=== PATIENT | female | born 1995 | race Caucasian/White ===

== ENCOUNTER 2017-10-06 07:12 | Inpatient (IN) | payer MEDICAID ==
[2017-10-06] MEDS ORDERED: Lactated Ringers 1,000 ML IV ONE (07:15)
[2017-10-06] MEDS ORDERED: XYLOCAINE 1% HCL 20 ML MDV ONE (07:23)
[2017-10-06] MEDS ORDERED: PITOCIN 30 UNITS/ LR 500 ML 500 ML IV ONE (07:24)
[2017-10-06] MEDS ORDERED: LANSINOH 40 GM TOP PRN (07:34)
[2017-10-06] MEDS ORDERED: TYLENOL EXTRA STRENGTH 500 MG PO PRN ×2 (07:34)
[2017-10-06] MEDS ORDERED: Anucort-HC SUPPOSITORY PR PRN (07:34)
[2017-10-06] MEDS ORDERED: Restoril 15 MG PO PRN (07:34)
[2017-10-06] MEDS ORDERED: Mylicon 80MG PO PRN (07:34)
[2017-10-06] MEDS ORDERED: CORTISONE 1% CREAM TP PRN (07:34)
[2017-10-06] MEDS ORDERED: Dulcolax 10 MG SUPP PR PRN (07:34)
[2017-10-06] MEDS ORDERED: Zofran 4 MG/2 ML VIAL IV PRN (07:34)
[2017-10-06] MEDS ORDERED: Ambien 10 MG PO PRN (07:34)
[2017-10-06] MEDS ORDERED: XYLOCAINE 1% HCL 20 ML MDV IJ PRN (07:34)
[2017-10-06] MEDS ORDERED: TUCKS TP PRN (07:34)
[2017-10-06] MEDS ORDERED: Dermoplast Spray TP PRN (07:34)
[2017-10-06] MEDS ORDERED: Lactated Ringers 1,000 ML IV SCH (08:00)
[2017-10-06] MEDS ORDERED: PITOCIN 30 UNITS/ LR 500 ML 500 ML IV SCH (08:00)
[2017-10-06 08:14] LABS: Granulocyte Absolute (ANC) 23.01 (1.4-6.9); Hematocrit 33.4 % (35-47); Hemoglobin 10.9 gm/dl (12.0-16.0); Mean Cell Volume 92.3 fl (78-100); Mean Corpuscular Hemoglobin 30.1 pg (26-32); Mean Corpuscular Hgb Concent. 32.6 g/dl (32-36); Mean Platelet Volume 9.3 fl (6-9.5); Platelet Count 254 K/mm3 (150-450); Red Blood Count 3.62 M/mm3 (4.1-5.4); Red Cell Distribution Width 13.2 % (11.5-14.0)
[2017-10-06 08:51] LABS: White Blood Count 26.8 K/mm3 (4.0-10.5)
[2017-10-06] MEDS: MOTRIN 400 MG PO PRN ×3 (09:07→23:35)
[2017-10-06 09:53] LABS: ABO TYPING O; Antibody Screen NEGATIVE (NEGATIVE); RH TYPING POSITIVE
[2017-10-06 11:50] LABS: BAND 5 % (0.0-2.0); Lymphocytes 15 % (24-44); Monocyte 3 % (0.0-12.0); Neutrophils 77 % (36.0-66.0); Total Cells Counted 100
[2017-10-06 11:51] LABS: Platelet Estimate NORMAL (NORMAL)
[2017-10-06] MEDS: NICODERM CQ 14 MG TOP SCH (16:12)
[2017-10-06] MEDS: NORCO 5/325 MG PO PRN (20:12)
[2017-10-06] MEDS: Colace 100 MG PO SCH (20:12)
[2017-10-07 06:10] LABS: Granulocyte Absolute (ANC) 20.09 (1.4-6.9); Hematocrit 31.1 % (35-47); Hemoglobin 10.1 gm/dl (12.0-16.0); Mean Corpuscular Hgb Concent. 32.5 g/dl (32-36); Mean Platelet Volume 9.5 fl (6-9.5); Platelet Count 274 K/mm3 (150-450); Red Blood Count 3.38 M/mm3 (4.1-5.4); Red Cell Distribution Width 13.4 % (11.5-14.0)
[2017-10-07 06:31] LABS: Mean Corpuscular Hemoglobin 29.8 pg (26-32); White Blood Count 26.7 K/mm3 (4.0-10.5)
--- NOTE | 2017-10-07 08:44 | PCM.NOTE ---
Date and Time: 10/07/17 0842 Subjective Assessment: patient has mild lochia today, no significant pelvic pain. has some mild cough that is chronic from smoking. no dysuria, hesitancy or frequency Objective Exam General Appearance: no apparent distress, alert Respiratory Exam: normal breath sounds, lungs clear, No respiratory distress Cardiovascular Exam: regular rate/rhythm, normal heart sounds Gastrointestinal/Abdomen Exam: soft, No tenderness, No mass Extremity Exam: normal inspection, normal range of motion OBJECTIVE DATA Vital Signs: Vital Signs - 24 hr Temp Pulse Resp BP 10/07/17 02:00 98.1 F 83 20 107/54 10/06/17 20:20 98.3 F 80 18 129/60 10/06/17 14:00 99.4 F 92 H 18 109/54 10/06/17 09:55 98.5 F 87 18 125/71 10/06/17 08:55 86 18 123/60 Pain Assessment - Last Documented Pain Intensity [Lower Anterior 5 /Posterior] Pain Intensity 6 Pain Scale Used 0-10 Pain Scale Intake and Output: Intake & Output 10/04/17 10/05/17 10/06/17 10/07/17 11:59 11:59 11:59 11:59 Intake Total 3000 Balance 3000 Weight 99.798 kg Lab Results: Lab Results-Last 24 Hours 10/06/17 10/06/17 10/06/17 Range/Units 07:52 07:52 07:52 WBC 26.8 H* (4.0-10.5) K/mm3 RBC 3.62 L (4.1-5.4) M/mm3 Hgb 10.9 L (12.0-16.0) gm/dl Hct 33.4 L (35-47) % MCV 92.3 (78-100) fl MCH 30.1 (26-32) pg MCHC 32.6 (32-36) g/dl RDW 13.2 (11.5-14.0) % Plt Count 254 (150-450) K/mm3 MPV 9.3 (6-9.5) fl Absolute Granulocytes 23.01 H (1.4-6.9) Segmented Neutrophils 77 H (36.0-66.0) % Band Neutrophils 5 H (0.0-2.0) % Lymphocytes (Manual) 15 L (24-44) % Monocytes (Manual) 3 (0.0-12.0) % Platelet Estimate NORMAL (NORMAL) RBC Morphology NORMAL Hep Bs Antigen Non Reactive (Non Reactive) ABO Group O Rh Factor POSITIVE Antibody Screen NEGATIVE (NEGATIVE) 10/07/17 Range/Units 05:30 WBC 26.7 H* (4.0-10.5) K/mm3 RBC 3.38 L (4.1-5.4) M/mm3 Hgb 10.1 L (12.0-16.0) gm/dl Hct 31.1 L (35-47) % MCV 92.0 (78-100) fl MCH 29.8 (26-32) pg MCHC 32.5 (32-36) g/dl RDW 13.4 (11.5-14.0) % Plt Count 274 (150-450) K/mm3 MPV 9.5 (6-9.5) fl Absolute Granulocytes 20.09 H (1.4-6.9) Segmented Neutrophils (36.0-66.0) % Band Neutrophils (0.0-2.0) % Lymphocytes (Manual) (24-44) % Monocytes (Manual) (0.0-12.0) % Platelet Estimate (NORMAL) RBC Morphology Hep Bs Antigen (Non Reactive) ABO Group Rh Factor Antibody Screen (NEGATIVE) Radiology Exams: Radiology Procedures Category Date Time Status CHEST 2 VIEWS (PA AND LAT) Urgent Exams 10/07/17 Ordered Multi-Disciplinary Progress Notes: Multi-Disciplinary Progress Notes 10/06/17 14:06 Respiratory Note by Maylin Ramirez FOR DELIVERY PER OB REQUEST NO COMPLICATIONS Initialized on 10/06/17 14:06 - END OF NOTE Assessment/Plan (1) Vaginal delivery Current Visit: Yes Status: Acute Code(s): O80 - ENCOUNTER FOR FULL-TERM UNCOMPLICATED DELIVERY (2) Leukocytosis Current Visit: Yes Status: Acute Assessment & Plan: get blood cultures, chest xray and u/a. will give a dose of rocephin emperically. requested a peripheral smear Code(s): D72.829 - ELEVATED WHITE BLOOD CELL COUNT, UNSPECIFIED
[2017-10-07 08:55] LABS: BAND 2 % (0.0-2.0); Eosinophil 1 % (0.00-3.0); Lymphocytes 22 % (24-44); Monocyte 1 % (0.0-12.0); Neutrophils 74 % (36.0-66.0); Platelet Estimate NORMAL (NORMAL); Polychromasia 1+; Total Cells Counted 100
--- NOTE | 2017-10-07 09:36 | XRAY ---
Indication: Cough. Elevated WBC. Comparison: None PA/lateral chest demonstrates normal heart, lungs, and bony thorax.
[2017-10-07] MEDS ORDERED: ROCEPHIN 1 Gm-D5w 50 ml Bag** 1 G/50 ML IVPB IV SCH (10:00)
[2017-10-07] MEDS: Colace 100 MG PO SCH (11:00)
[2017-10-07] MEDS: NORCO 5/325 MG PO PRN (11:04)
[2017-10-07] MEDS: FERREX 150 PO SCH ×2 (11:07→13:37)
[2017-10-07 12:40] LABS: Appearance CLEAR (CLEAR)
[2017-10-07 12:41] LABS: Bilirubin NEGATIVE (NEGATIVE); Blood NEGATIVE Ery/ul (0-5); Glucose NEGATIVE (NEGATIVE); Ketones NEGATIVE (NEGATIVE); Leukocyte Esterase 1+ (NEGATIVE); Nitrite NEGATIVE (NEGATIVE); Protein,Urine Dip NEGATIVE (Negative); Urobilinogen NORMAL mg/dL (0-1)
[2017-10-07 12:50] LABS: Bacteria FEW /HPF (NEGATIVE); Epithelial Cells MODERATE /HPF (FEW); Mucus SLIGHT /HPF (NEGATIVE)
[2017-10-07 12:56] LABS: Immune Status: Equivocal
[2017-10-07 14:00] LABS: RPR with Quantitation Non Reactive (Non Reactive)
[2017-10-07] MEDS: MOTRIN 400 MG PO PRN (16:21)
[2017-10-07] MEDS: NICODERM CQ 14 MG TOP SCH (16:22)
[2017-10-07 18:39] LABS: Amphetamine,Urine NEGATIVE (NEGATIVE); Barbiturate,Urine NEGATIVE (NEGATIVE); Benzodiazepine,Urine NEGATIVE (NEGATIVE); Cocaine,Urine NEGATIVE (NEGATIVE); Methadone,Urine NEGATIVE (NEGATIVE); Opiate,Urine NEGATIVE (NEGATIVE); PCP,Urine NEGATIVE (NEGATIVE); THC,Urine NEGATIVE (NEGATIVE)
[2017-10-07 20:53] VITALS: BP 125/74; PULSE 86
== END 2017-10-07 22:15 | disposition home or self-care (01) | DRG 775 ==
LOC: OB 07:12 → OBSVTOIN 07:12
PROVIDERS: ADMIT Family Medicine; ATTEND Family Medicine
PROC: 10E0XZZ Delivery of Products of Conception, External Approach (ICD-10-PCS; principal; 2017-10-06)
DX: O80 Encounter for full-term uncomplicated delivery (principal); Z3A.39 39 weeks gestation of pregnancy; Z37.0 Single live birth; D72.829 Elevated white blood cell count, unspecified
CPT/HCPCS: 36415; 71046; 80307; 81000; 85025; 86592; 86593; 86701; 86702; 86762; 86780; 86850; 86900; 86901; 87086; 87340; 87389; 94799; G0378; J0696; J2590; A9270-GY